=== PATIENT | female | born 2000 | race Caucasian/White ===

== ENCOUNTER 2018-03-20 12:02 | Emergency (ER) | payer OTHER ==
[2018-03-20] MEDS: ONDANSETRON (ODT) 4 MG TAB ODT (13:13)
[2018-03-20] MEDS: HYDROCODONE/APAP (5/325) TAB PO (13:13)
== END 2018-03-20 13:25 | disposition home or self-care (01) ==
LOC: FTE 12:02
DX: S82.61XA Displaced fracture of lateral malleolus of right fibula, initial encounter for closed fracture (principal); X58.XXXA Exposure to other specified factors, initial encounter; Y92.9 Unspecified place or not applicable
CPT/HCPCS: 29515; 99283-25

== ENCOUNTER 2018-05-26 20:08 | Emergency (ER) | payer OTHER ==
[2018-05-26] MEDS: SOD CHLORIDE 0.9% 1,000 ML IV (22:34)
[2018-05-26] MEDS: ONDANSETRON 4 MG INJ IV (22:34)
[2018-05-26 22:36] LABS: ADD MAN DIFF? NO
[2018-05-26 22:38] LABS: BASOPHIL # 0.1 10^3/ul (0.0-0.1); BASOPHILS % 0.4 % (0.0-2.0); EOSINOPHILS # 0.2 10^3/ul (0.0-0.5); EOSINOPHILS % 1.3 % (0.0-7.0); HEMATOCRIT 40.7 % (37.0-47.0); LYMPHOCYTES # 2.6 10^3/ul (0.8-2.9); LYMPHOCYTES % 17.2 % (18.0-55.0); MEAN CORPUSCULAR HEMOGLOBIN 31.2 pg (29.0-33.0); MEAN CORPUSCULAR HGB CONC 34.4 g/dl (32.0-37.0); MEAN CORPUSCULAR VOLUME 90.6 fl (72.0-104.0); MEAN PLATELET VOLUME 10.1 fl (7.4-10.4); MONOCYTE # 0.9 10^3/ul (0.3-0.9); MONOCYTES % 6.2 % (0.0-13.0); NEUTROPHIL # 11.3 10^3/ul (1.6-7.5); NEUTROPHILS % 74.4 % (30.0-74.0); PLATELET COUNT 372 10^3/UL (140-415); RED BLOOD COUNT 4.49 10^6/ul (4.20-5.40); RED CELL DISTRIBUTION WIDTH 11.9 % (11.5-14.5)
[2018-05-26 22:38] LABS: WHITE BLOOD COUNT 15.1 10^3/ul (4.8-10.8)
[2018-05-26 22:43] LABS: ADD UMIC YES; UR ASCORBIC ACID 40 mg/dL (NEGATIVE); UR BILIRUBIN (Dip) NEGATIVE (NEGATIVE); UR BLOOD (Dip) NEGATIVE (NEGATIVE); UR CLARITY SLIGHTLY CLOUDY (CLEAR); UR COLOR YELLOW (YELLOW); UR GLUCOSE (Dip) NEGATIVE (NEGATIVE); UR KETONES (Dip) TRACE mg/dL (NEGATIVE); UR LEUKOCYTE ESTERASE (Dip) TRACE Leu/ul (NEGATIVE); UR MUCUS FEW /HPF (NONE SEEN); UR NITRITE (Dip) NEGATIVE (NEGATIVE); UR RBC 4 /HPF (0-5); UR SPECIFIC GRAVITY (Dip) 1.015 (1.003-1.030); UR SQUAMOUS EPITHELIAL CELL MODERATE /HPF (FEW); UR TOTAL PROTEIN (Dip) NEGATIVE (NEGATIVE); UR UROBILINOGEN (Dip) NEGATIVE (NEGATIVE); UR WBC 7 /HPF (0-5)
[2018-05-26 22:55] LABS: ALANINE AMINOTRANSFERASE 41 IU/L (13-69); ALBUMIN 4.6 g/dl (3.3-4.9); ALBUMIN/GLOBULIN RATIO 1.39; ALKALINE PHOSPHATASE 77 IU/L (42-121); ANION GAP 11 (5-13); ASPARTATE AMINO TRANSFERASE 18 IU/L (15-46); BILIRUBIN,INDIRECT 0.5 mg/dl (0-1.1); BILIRUBIN,TOTAL 0.5 mg/dl (0.2-1.3); BLOOD UREA NITROGEN 6 mg/dl (7-20); CALCIUM 9.8 mg/dl (8.4-10.2); CARBON DIOXIDE 27 mmol/L (21-31); CHLORIDE 100 mmol/L (97-110); CREATININE 0.49 mg/dl (0.44-1.00); Estimated GFR > 60 mL/min (>60); GLUCOSE 85 mg/dl (70-220); LIPASE 64 U/L (23-300); SODIUM 138 mmol/L (135-144); TOTAL PROTEIN 7.9 g/dl (6.1-8.1)
== END 2018-05-26 23:39 | disposition home or self-care (01) ==
LOC: FTE 20:08
DX: O21.0 Mild hyperemesis gravidarum (principal); Z3A.09 9 weeks gestation of pregnancy
CPT/HCPCS: 36415; 80053; 81001; 83690; 85025; 96361; 96374; 99284-25

== ENCOUNTER 2018-07-21 22:01 | Emergency (ER) | payer OTHER ==
[2018-07-22 01:15] LABS: ADD MAN DIFF? NO
[2018-07-22 01:16] LABS: WHITE BLOOD COUNT 15.1 10^3/ul (4.8-10.8)
[2018-07-22 01:16] LABS: BASOPHIL # 0.1 10^3/ul (0.0-0.1); BASOPHILS % 0.3 % (0.0-2.0); EOSINOPHILS # 0.3 10^3/ul (0.0-0.5); EOSINOPHILS % 2.1 % (0.0-7.0); HEMATOCRIT 37.3 % (37.0-47.0); HEMOGLOBIN 12.6 g/dl (12.0-16.0); LYMPHOCYTES # 2.9 10^3/ul (0.8-2.9); MEAN CORPUSCULAR HEMOGLOBIN 31.3 pg (29.0-33.0); MEAN CORPUSCULAR HGB CONC 33.8 g/dl (32.0-37.0); MEAN CORPUSCULAR VOLUME 92.8 fl (72.0-104.0); MEAN PLATELET VOLUME 10.1 fl (7.4-10.4); MONOCYTE # 1.1 10^3/ul (0.3-0.9); MONOCYTES % 7.3 % (0.0-13.0); NEUTROPHIL # 10.6 10^3/ul (1.6-7.5); NEUTROPHILS % 70.4 % (30.0-74.0); PLATELET COUNT 347 10^3/UL (140-415); RED BLOOD COUNT 4.02 10^6/ul (4.20-5.40); RED CELL DISTRIBUTION WIDTH 12.1 % (11.5-14.5)
[2018-07-22] MEDS: ACETAMINOPHEN 325 MG TAB PO (01:19)
[2018-07-22 01:23] LABS: ADD UMIC NO; UR ASCORBIC ACID 20 mg/dL (NEGATIVE); UR BACTERIA FEW /HPF (NONE SEEN); UR BILIRUBIN (Dip) NEGATIVE (NEGATIVE); UR BLOOD (Dip) NEGATIVE (NEGATIVE); UR CLARITY SLIGHTLY CLOUDY (CLEAR); UR COLOR YELLOW (YELLOW); UR GLUCOSE (Dip) NEGATIVE (NEGATIVE); UR KETONES (Dip) NEGATIVE (NEGATIVE); UR LEUKOCYTE ESTERASE (Dip) NEGATIVE Leu/ul (NEGATIVE); UR MUCUS FEW /HPF (NONE SEEN); UR NITRITE (Dip) NEGATIVE (NEGATIVE); UR RBC 1 /HPF (0-5); UR SPECIFIC GRAVITY (Dip) 1.009 (1.003-1.030); UR SQUAMOUS EPITHELIAL CELL MODERATE /HPF (FEW); UR TOTAL PROTEIN (Dip) NEGATIVE (NEGATIVE); UR UROBILINOGEN (Dip) NEGATIVE (NEGATIVE); UR WBC 0 /HPF (0-5)
[2018-07-22 01:39] LABS: ALANINE AMINOTRANSFERASE 36 IU/L (13-69); ALBUMIN 4.1 g/dl (3.3-4.9); ALKALINE PHOSPHATASE 79 IU/L (42-121); ANION GAP 15 (5-13); ASPARTATE AMINO TRANSFERASE 27 IU/L (15-46); BILIRUBIN,INDIRECT 0.3 mg/dl (0-1.1); BILIRUBIN,TOTAL 0.3 mg/dl (0.2-1.3); BLOOD UREA NITROGEN 5 mg/dl (7-20); CARBON DIOXIDE 27 mmol/L (21-31); CHLORIDE 98 mmol/L (97-110); CREATININE 0.47 mg/dl (0.44-1.00); Estimated GFR > 60 mL/min (>60); GLUCOSE 74 mg/dl (70-220); POTASSIUM 4.1 mmol/L (3.5-5.1); SODIUM 140 mmol/L (135-144); TOTAL PROTEIN 7.8 g/dl (6.1-8.1)
== END 2018-07-22 04:25 | disposition home or self-care (01) ==
LOC: FTE 22:01
DX: O26.892 Other specified pregnancy related conditions, second trimester (principal); R10.2 Pelvic and perineal pain; Z3A.17 17 weeks gestation of pregnancy
CPT/HCPCS: 36415; 76805; 80053; 81001; 81003; 84702; 85025; 86900; 86901; 99284-25

== ENCOUNTER 2018-12-09 22:06 | Inpatient (IN) | payer OTHER ==
[2018-12-10] MEDS ORDERED: CARBOPROST 250 MCG INJ IM
[2018-12-10] MEDS ORDERED: LIDOCAINE 1% (MPF) 30 ML INJ INJ
[2018-12-10] MEDS ORDERED: BUTORPHANOL 2 MG INJ IV
[2018-12-10] MEDS ORDERED: METHYLERGONOVINE 0.2 MG INJ IM
[2018-12-10] MEDS ORDERED: AMPICILLIN 2 GM/NS (PMX) 100 ML IV
[2018-12-10] MEDS ORDERED: OXYTOCIN 30 UNITS/LR 500 ML IV ×2
[2018-12-10] MEDS ORDERED: MISOPROSTOL 200 MCG TAB PR
[2018-12-10 01:03] LABS: ADD UMIC YES; UR ASCORBIC ACID NEGATIVE (NEGATIVE); UR BACTERIA FEW /HPF (NONE SEEN); UR BILIRUBIN (Dip) NEGATIVE (NEGATIVE); UR BLOOD (Dip) NEGATIVE (NEGATIVE); UR CLARITY SLIGHTLY CLOUDY (CLEAR); UR COLOR AMBER (YELLOW); UR GLUCOSE (Dip) NEGATIVE (NEGATIVE); UR KETONES (Dip) NEGATIVE (NEGATIVE); UR LEUKOCYTE ESTERASE (Dip) 1+ Leu/ul (NEGATIVE); UR NITRITE (Dip) NEGATIVE (NEGATIVE); UR RBC 1 /HPF (0-5); UR SPECIFIC GRAVITY (Dip) 1.018 (1.003-1.030); UR SQUAMOUS EPITHELIAL CELL FEW /HPF (FEW); UR TOTAL PROTEIN (Dip) 1+ mg/dl (NEGATIVE); UR UROBILINOGEN (Dip) 2+ mg/dL (NEGATIVE); UR WBC 8 /HPF (0-5)
[2018-12-10] MEDS: LACTATED RINGER'S 1,000 ML IV ×3 (01:06→16:54)
[2018-12-10 02:30] LABS: ADD MAN DIFF? NO
[2018-12-10 02:32] LABS: WHITE BLOOD COUNT 8.1 10^3/ul (4.8-10.8)
[2018-12-10 02:32] LABS: BASOPHILS % 0.5 % (0.0-2.0); EOSINOPHILS % 0.4 % (0.0-7.0); HEMATOCRIT 38.2 % (37.0-47.0); HEMOGLOBIN 12.5 g/dl (12.0-16.0); LYMPHOCYTES # 2.1 10^3/ul (0.8-2.9); LYMPHOCYTES % 26.4 % (18.0-55.0); MEAN CORPUSCULAR HEMOGLOBIN 30.1 pg (29.0-33.0); MEAN CORPUSCULAR HGB CONC 32.7 g/dl (32.0-37.0); MEAN PLATELET VOLUME 12.9 fl (7.4-10.4); MONOCYTE # 0.5 10^3/ul (0.3-0.9); MONOCYTES % 6.3 % (0.0-13.0); NEUTROPHIL # 5.3 10^3/ul (1.6-7.5); NEUTROPHILS % 65.8 % (30.0-74.0); PLATELET COUNT 252 10^3/UL (140-415); RED BLOOD COUNT 4.15 10^6/ul (4.20-5.40); RED CELL DISTRIBUTION WIDTH 13.6 % (11.5-14.5)
[2018-12-10 02:51] LABS: ALANINE AMINOTRANSFERASE 102 IU/L (13-69); ALBUMIN 3.4 g/dl (3.3-4.9); ALBUMIN/GLOBULIN RATIO 0.91; ALKALINE PHOSPHATASE 553 IU/L (42-121); ANION GAP 11 (5-13); ASPARTATE AMINO TRANSFERASE 42 IU/L (15-46); BILIRUBIN,INDIRECT 0.6 mg/dl (0-1.1); BILIRUBIN,TOTAL 0.6 mg/dl (0.2-1.3); BLOOD UREA NITROGEN 7 mg/dl (7-20); CALCIUM 9.2 mg/dl (8.4-10.2); CARBON DIOXIDE 21 mmol/L (21-31); CHLORIDE 109 mmol/L (97-110); CREATININE 0.63 mg/dl (0.44-1.00); Estimated GFR > 60 mL/min (>60); GLUCOSE 68 mg/dl (70-220); SODIUM 141 mmol/L (135-144); TOTAL PROTEIN 7.1 g/dl (6.1-8.1)
[2018-12-10 02:54] LABS: INR 0.82; PROTIME 11.4 Sec (11.9-14.9); PT RATIO 0.9
[2018-12-10 02:55] LABS: PARTIAL THROMBOPLASTIN TIME 28.3 Sec (23.0-35.0)
[2018-12-10] MEDS: MISOPROSTOL 50 MCG CAPSULE PO ×5 (02:56→22:19)
[2018-12-10 03:20] LABS: HEPATITIS B SURFACE ANTIGEN NEGATIVE (NEGATIVE)
[2018-12-10 09:50] LABS: ADD MAN DIFF? NO
[2018-12-10 09:54] LABS: WHITE BLOOD COUNT 8.4 10^3/ul (4.8-10.8)
[2018-12-10 09:54] LABS: BASOPHILS % 0.5 % (0.0-2.0); EOSINOPHILS % 0.5 % (0.0-7.0); HEMATOCRIT 38.5 % (37.0-47.0); HEMOGLOBIN 12.8 g/dl (12.0-16.0); LYMPHOCYTES # 1.9 10^3/ul (0.8-2.9); LYMPHOCYTES % 23.1 % (18.0-55.0); MEAN CORPUSCULAR HEMOGLOBIN 30.3 pg (29.0-33.0); MEAN CORPUSCULAR HGB CONC 33.2 g/dl (32.0-37.0); MONOCYTE # 0.6 10^3/ul (0.3-0.9); MONOCYTES % 6.7 % (0.0-13.0); NEUTROPHIL # 5.7 10^3/ul (1.6-7.5); NEUTROPHILS % 68.6 % (30.0-74.0); PLATELET COUNT 251 10^3/UL (140-415); RED BLOOD COUNT 4.23 10^6/ul (4.20-5.40); RED CELL DISTRIBUTION WIDTH 13.6 % (11.5-14.5)
[2018-12-10 10:15] LABS: ALANINE AMINOTRANSFERASE 90 IU/L (13-69); ALBUMIN 3.3 g/dl (3.3-4.9); ALBUMIN/GLOBULIN RATIO 0.94; ALKALINE PHOSPHATASE 535 IU/L (42-121); ANION GAP 8 (5-13); ASPARTATE AMINO TRANSFERASE 36 IU/L (15-46); BILIRUBIN,INDIRECT 0.7 mg/dl (0-1.1); BILIRUBIN,TOTAL 0.7 mg/dl (0.2-1.3); BLOOD UREA NITROGEN 7 mg/dl (7-20); CALCIUM 9.2 mg/dl (8.4-10.2); CARBON DIOXIDE 23 mmol/L (21-31); CHLORIDE 108 mmol/L (97-110); CREATININE 0.64 mg/dl (0.44-1.00); Estimated GFR > 60 mL/min (>60); GLUCOSE 75 mg/dl (70-220); POTASSIUM 4.2 mmol/L (3.5-5.1); SODIUM 139 mmol/L (135-144); TOTAL PROTEIN 6.8 g/dl (6.1-8.1); URIC ACID 6.4 mg/dl (3.1-7.9)
[2018-12-10 10:23] LABS: INR 0.78; PARTIAL THROMBOPLASTIN TIME 29.6 Sec (23.0-35.0); PT RATIO 0.9
[2018-12-10 20:48] LABS: RAPID PLASMA REAGIN NONREACTIVE (NR)
[2018-12-11] MEDS: LACTATED RINGER'S 1,000 ML IV ×3 (01:30→17:46)
[2018-12-11] MEDS: MISOPROSTOL 50 MCG CAPSULE PO (02:25)
[2018-12-11] MEDS: OXYTOCIN 30 UNITS/LR 500 ML IV (06:08)
[2018-12-11] MEDS: CEFAZOLIN 1 GM/50 ML (PMX) 50 ML IVPB (21:15)
[2018-12-11 22:31] LABS: ADD MAN DIFF? NO
[2018-12-11 22:34] LABS: WHITE BLOOD COUNT 8.3 10^3/ul (4.8-10.8)
[2018-12-11 22:34] LABS: BASOPHILS % 0.5 % (0.0-2.0); EOSINOPHILS % 0.5 % (0.0-7.0); HEMATOCRIT 34.9 % (37.0-47.0); HEMOGLOBIN 11.7 g/dl (12.0-16.0); LYMPHOCYTES # 1.4 10^3/ul (0.8-2.9); LYMPHOCYTES % 17.3 % (18.0-55.0); MEAN CORPUSCULAR HEMOGLOBIN 30.2 pg (29.0-33.0); MEAN CORPUSCULAR HGB CONC 33.5 g/dl (32.0-37.0); MEAN CORPUSCULAR VOLUME 90.2 fl (72.0-104.0); MEAN PLATELET VOLUME 11.7 fl (7.4-10.4); MONOCYTE # 0.5 10^3/ul (0.3-0.9); MONOCYTES % 6.5 % (0.0-13.0); NEUTROPHIL # 6.2 10^3/ul (1.6-7.5); NEUTROPHILS % 74.4 % (30.0-74.0); PLATELET COUNT 231 10^3/UL (140-415); RED BLOOD COUNT 3.87 10^6/ul (4.20-5.40); RED CELL DISTRIBUTION WIDTH 13.4 % (11.5-14.5)
[2018-12-11 23:05] LABS: ALANINE AMINOTRANSFERASE 71 IU/L (13-69); ALBUMIN 2.8 g/dl (3.3-4.9); ALKALINE PHOSPHATASE 451 IU/L (42-121); ANION GAP 6 (5-13); ASPARTATE AMINO TRANSFERASE 32 IU/L (15-46); BILIRUBIN,INDIRECT 0.6 mg/dl (0-1.1); BILIRUBIN,TOTAL 0.6 mg/dl (0.2-1.3); BLOOD UREA NITROGEN 7 mg/dl (7-20); CALCIUM 8.8 mg/dl (8.4-10.2); CARBON DIOXIDE 24 mmol/L (21-31); CHLORIDE 107 mmol/L (97-110); CREATININE 0.65 mg/dl (0.44-1.00); Estimated GFR > 60 mL/min (>60); GLUCOSE 95 mg/dl (70-220); POTASSIUM 3.5 mmol/L (3.5-5.1); SODIUM 137 mmol/L (135-144); TOTAL PROTEIN 5.9 g/dl (6.1-8.1); URIC ACID 5.7 mg/dl (3.1-7.9)
[2018-12-12] MEDS: LACTATED RINGER'S 1,000 ML IV ×3 (02:29→22:30)
[2018-12-12] MEDS ORDERED: CEFAZOLIN 2 GM/50 ML (PMX) 50 ML IVPB (05:30)
[2018-12-12] MEDS: CITRIC ACID/NA CITRATE 30 ML CUP PO (05:34)
[2018-12-12] MEDS: ONDANSETRON 4 MG INJ IV ×2 (05:34→12:59)
[2018-12-12] MEDS ORDERED: morphine SULFATE/PF (10 MG/10 ML) INJ (06:14)
[2018-12-12] MEDS ORDERED: PHENYLephrine (100 MCG/ML) 10ML SYG (06:14)
[2018-12-12] MEDS ORDERED: OXYTOCIN 10 UNIT INJ (06:15)
[2018-12-12] MEDS ORDERED: HYDROmorphONE 1 MG/5 ML IV SYRINGE IV ×2 (07:00)
[2018-12-12] MEDS ORDERED: ACETAMINOPHEN 500 MG TAB PO (07:00)
[2018-12-12] MEDS ORDERED: OXYCODONE/ACETAMINOPHEN (5/325) TAB PO ×2 (07:00→07:30)
[2018-12-12] MEDS ORDERED: HYDROmorphONE 0.5 MG/0.5 ML SYG IV ×2 (07:00)
[2018-12-12] MEDS ORDERED: FENTAnyl 50 MCG/ML VIAL IV ×2 (07:00)
[2018-12-12] MEDS ORDERED: METOCLOPRAMIDE 10 MG INJ IV (07:00)
[2018-12-12] MEDS ORDERED: EPHEDrine 25 MG/5 ML SYG IV (07:00)
[2018-12-12] MEDS ORDERED: HYDROCODONE/APAP (5/325) TAB PO (07:00)
[2018-12-12] MEDS ORDERED: NALOXONE (0.4 MG/ML) INJ IV (07:00)
[2018-12-12] MEDS ORDERED: MEPERIDINE 25 MG INJ IV (07:00)
[2018-12-12] MEDS ORDERED: morphine 2 MG INJ IV ×2 (07:00)
[2018-12-12] MEDS ORDERED: ONDANSETRON 4 MG INJ IV ×2 (07:00→07:30)
[2018-12-12] MEDS ORDERED: LABETALOL HCL 20MG INJ IV (07:00)
[2018-12-12] MEDS ORDERED: NALBUPHINE HCL (10 MG/1 ML) INJ IV (07:00)
[2018-12-12] MEDS ORDERED: DIPHENHYDRAMINE 50 MG INJ IV ×2 (07:00)
[2018-12-12] MEDS ORDERED: DEXAMETHASONE 4 MG/ML 1 ML INJ (07:05)
[2018-12-12] MEDS ORDERED: KETOROLAC 30 MG INJ (07:05)
[2018-12-12] MEDS ORDERED: METOCLOPRAMIDE 10 MG INJ (07:05)
[2018-12-12] MEDS ORDERED: CEFAZOLIN 1 GM/50 ML (PMX) 50 ML IVPB (07:30)
[2018-12-12] MEDS ORDERED: METHYLERGONOVINE 0.2 MG INJ IM (07:30)
[2018-12-12] MEDS ORDERED: SENNA/DOCUSATE NA (8.6MG/50MG) TAB PO (07:30)
[2018-12-12] MEDS ORDERED: OXYTOCIN 30 UNITS/LR 500 ML IV (07:30)
[2018-12-12] MEDS ORDERED: ACETAMINOPHEN 325 MG TAB PO (07:30)
[2018-12-12] MEDS ORDERED: MISOPROSTOL 200 MCG TAB PR (07:30)
[2018-12-12] MEDS ORDERED: CARBOPROST 250 MCG INJ IM (07:30)
[2018-12-12] MEDS ORDERED: BISACODYL 10 MG SUPP PR (07:30)
[2018-12-12] MEDS: OXYTOCIN 30 UNITS/LR 500 ML IV ×2 (08:21→12:56)
[2018-12-12] MEDS: LANOLIN HPA 1 PKT TOP (12:58)
[2018-12-12] MEDS: CEFAZOLIN 1 GM/50 ML (PMX) 50 ML IVPB ×2 (15:50→22:41)
[2018-12-13] MEDS: KETOROLAC 30 MG INJ IV (02:43)
[2018-12-13 06:47] LABS: ADD MAN DIFF? NO
[2018-12-13 06:49] LABS: BASOPHILS % 0.2 % (0.0-2.0); EOSINOPHILS % 0.2 % (0.0-7.0); HEMATOCRIT 32.5 % (37.0-47.0); HEMOGLOBIN 10.6 g/dl (12.0-16.0); LYMPHOCYTES # 2.9 10^3/ul (0.8-2.9); LYMPHOCYTES % 23.6 % (18.0-55.0); MEAN CORPUSCULAR HEMOGLOBIN 30.2 pg (29.0-33.0); MEAN CORPUSCULAR HGB CONC 32.6 g/dl (32.0-37.0); MEAN CORPUSCULAR VOLUME 92.6 fl (72.0-104.0); MEAN PLATELET VOLUME 11.8 fl (7.4-10.4); MONOCYTES % 8.5 % (0.0-13.0); NEUTROPHIL # 8.1 10^3/ul (1.6-7.5); PLATELET COUNT 264 10^3/UL (140-415); RED BLOOD COUNT 3.51 10^6/ul (4.20-5.40); RED CELL DISTRIBUTION WIDTH 13.7 % (11.5-14.5)
[2018-12-13 06:49] LABS: WHITE BLOOD COUNT 12.2 10^3/ul (4.8-10.8)
[2018-12-13 07:09] LABS: ALANINE AMINOTRANSFERASE 61 IU/L (13-69); ALBUMIN 2.9 g/dl (3.3-4.9); ALKALINE PHOSPHATASE 411 IU/L (42-121); ANION GAP 4 (5-13); ASPARTATE AMINO TRANSFERASE 47 IU/L (15-46); BILIRUBIN,INDIRECT 0.7 mg/dl (0-1.1); BILIRUBIN,TOTAL 0.7 mg/dl (0.2-1.3); BLOOD UREA NITROGEN 6 mg/dl (7-20); CALCIUM 9.1 mg/dl (8.4-10.2); CARBON DIOXIDE 30 mmol/L (21-31); CHLORIDE 103 mmol/L (97-110); CREATININE 0.65 mg/dl (0.44-1.00); Estimated GFR > 60 mL/min (>60); GLUCOSE 71 mg/dl (70-220); POTASSIUM 4.5 mmol/L (3.5-5.1); SODIUM 137 mmol/L (135-144); TOTAL PROTEIN 6.1 g/dl (6.1-8.1)
[2018-12-13] MEDS: CEFAZOLIN 1 GM/50 ML (PMX) 50 ML IVPB (09:03)
[2018-12-13] MEDS: IBUPROFEN 600 MG TAB PO ×2 (13:19→21:01)
[2018-12-13] MEDS: MAGNESIUM HYDROXIDE 30ML CUP PO (18:51)
[2018-12-13] MEDS: OXYCODONE/ACETAMINOPHEN (5/325) TAB PO (21:01)
[2018-12-14] MEDS: IBUPROFEN 600 MG TAB PO ×2 (09:16→17:24)
[2018-12-14] MEDS: LANOLIN HPA 1 PKT TOP ×2 (09:16→17:24)
[2018-12-14] MEDS: OXYCODONE/ACETAMINOPHEN (5/325) TAB PO (09:16)
[2018-12-15] MEDS: IBUPROFEN 600 MG TAB PO (03:58)
== END 2018-12-15 13:45 | disposition home or self-care (01) | DRG 788 ==
LOC: OBT 22:06 → L-D 12-10 00:06 → PP1 12-12 10:38 → OBT 23:35 → L-D 23:35
PROC: 10D00Z1 Extraction of Products of Conception, Low, Open Approach (ICD-10-PCS; principal; 2018-12-12)
DX: O13.4 Gestational [pregnancy-induced] hypertension without significant proteinuria, complicating childbirth (principal); O61.0 Failed medical induction of labor; O14.14 Severe pre-eclampsia complicating childbirth; Z3A.38 38 weeks gestation of pregnancy; Z37.0 Single live birth
CPT/HCPCS: 76816; 80053; 81001; 84560; 85025; 85384; 85610; 85730; 86592; 86850; 86900; 86901; 87340; 99464